=== PATIENT | male | born 1930 | race Caucasian/White ===

== ENCOUNTER 2016-05-18 19:50 | Inpatient (IN) | payer BC ==
[~2016-05-18] VITALS: Ht 182.9 cm; Wt 76.8 kg
[2016-05-18] MEDS ORDERED: MAGNESIUM HYDROXIDE 2,400 MG/30 ML ORAL.SUSP. PO PRN (20:15)
[2016-05-18] MEDS ORDERED: MAG HYDROX/AL HYDROX/SIMETH 30 ML ORAL.SUSP PO PRN (20:15)
[2016-05-18] MEDS ORDERED: METHYL SALICYLATE/MENTHOL TOPICAL OINTMENT 29GM TUBE. TP PRN (20:15)
[2016-05-18 20:45] LABS: BASO # 0.1 x10^3/uL (0.0-0.2); BASO % 1 % (0-3); EOS # 0.3 x10^3/uL (0.0-0.7); EOS % 2 % (0-3); HEMATOCRIT 40.6 % (39.0-53.0); LYMPH # 3.1 x10^3/uL (1.0-4.8); LYMPH % 29 % (24-48); MEAN CORPUSCULAR HEMOGLOBIN 32 pg (25-35); MEAN CORPUSCULAR HGB CONC 35 g/dL (31-37); MEAN CORPUSCULAR VOLUME 94 fL (79-100); MONO # 0.9 x10^3/uL (0.0-1.1); MONO % 9 % (0-9); NEUT # 6.2 x10^3uL (1.8-7.7); NEUT % 59 % (31-73); PLATELET COUNT 415 x10^3/uL (140-400); RED BLOOD COUNT 4.34 x10^6/uL (4.30-5.70); RED CELL DISTRIBUTION WIDTH 17.3 % (11.5-14.5); WHITE BLOOD COUNT 10.6 x10^3/uL (4.0-11.0)
--- NOTE | 2016-05-18 20:59 | PDOC ---
Exam Tyson Demential Exam: Tyson Note: Please also refer to the separate dictated note~for this date of service dictated separately.~Patient seen individually. Discussed the patient with Nursing staff reviewed the chart.~Reviewed interim history and current functioning. Reviewed vital signs,~Labs/ Radiology~and current medications noted below. Continue current treatment with the changes noted in the dictated addendum note Assessment: Labs: Laboratory Tests Test 05/18/16 20:25 White Blood Count 10.6x10^3/uL (4.0-11.0) Red Blood Count 4.34x10^6/uL (4.30-5.70) Hemoglobin 14.0g/dL (13.0-17.5) Hematocrit 40.6% (39.0-53.0) Mean Corpuscular Volume 94fL (79-100) Mean Corpuscular Hemoglobin 32pg (25-35) Mean Corpuscular Hemoglobin Concent 35g/dL (31-37) Red Cell Distribution Width 17.3% (11.5-14.5) H Platelet Count 415x10^3/uL (140-400) H Neutrophils (%) (Auto) 59% (31-73) Lymphocytes (%) (Auto) 29% (24-48) Monocytes (%) (Auto) 9% (0-9) Eosinophils (%) (Auto) 2% (0-3) Basophils (%) (Auto) 1% (0-3) Neutrophils # (Auto) 6.2x10^3uL (1.8-7.7) Lymphocytes # (Auto) 3.1x10^3/uL (1.0-4.8) Monocytes # (Auto) 0.9x10^3/uL (0.0-1.1) Eosinophils # (Auto) 0.3x10^3/uL (0.0-0.7) Basophils # (Auto) 0.1x10^3/uL (0.0-0.2) Current Medications: Meds: Current Medications Acetaminophen (Tylenol) 650 mg PRN Q6HRS PRN PO PAIN / TEMP; Start 05/18/16 at 20:15 Multi-Ingredient Ointment (Analgesic [place]) 1 rena PRN QID PRN TP MUSCLE PAIN; Start 05/18/16 at 20:15 Al Hydroxide/Mg Hydroxide (Mylanta Plus Xs) 15 ml PRN AFTMEALHC PRN PO DYSPEPSIA; Start 05/18/16 at 20:15 Magnesium Hydroxide (Milk Of Magnesia) 2,400 mg PRN QHS PRN PO CONSTIPATION; Start 05/18/16 at 20:15 RIKY GREY MD May 18, 2016 20:59
[2016-05-18 21:01] LABS: ALBUMIN 4.3 g/dL (3.4-5.0); ALBUMIN/GLOBULIN RATIO 1.2 (1.0-1.7); CALCIUM 9.3 mg/dL (8.5-10.1); CREATININE 0.8 mg/dL (0.7-1.3); GFR 91.4; MAGNESIUM 1.8 mg/dL (1.8-2.4); POTASSIUM 3.5 mmol/L (3.5-5.1); TOTAL PROTEIN 7.8 g/dL (6.4-8.2)
[2016-05-18] MEDS ORDERED: BENZ100C2 PO (21:25)
[2016-05-18] MEDS ORDERED: CYCL10TA2 PO (21:25)
[2016-05-18] MEDS ORDERED: CHOL10002 PO (21:25)
[2016-05-18] MEDS ORDERED: MULT-671 PO (21:25)
[2016-05-18] MEDS ORDERED: LEVO125T5 PO (21:25)
[2016-05-18] MEDS ORDERED: AMLO5TAB4 PO (21:25)
[2016-05-18] MEDS ORDERED: ZOLP5TAB5 PO (21:25)
[2016-05-18] MEDS ORDERED: MIRA25TA PO (21:25)
[2016-05-18] MEDS ORDERED: ASPI81TA50 PO (21:25)
[2016-05-18] MEDS ORDERED: FOLI1TAB16 PO (21:25)
[2016-05-18] MEDS ORDERED: LEVE500T11 PO (21:25)
[2016-05-18] MEDS ORDERED: CYAN10002 IM (21:25)
[2016-05-18] MEDS ORDERED: BENA40TA15 PO (21:25)
[2016-05-18] MEDS ORDERED: CARV6.25 PO (21:25)
[2016-05-18] MEDS ORDERED: ALBU2.5V5 NEB (21:25)
[2016-05-18] MEDS ORDERED: BENZONATATE 100 MG CAPSULE. PO PRN (22:15)
[2016-05-18] MEDS ORDERED: CYCLOBENZAPRINE 10 MG TABLET. PO PRN (22:15)
[2016-05-18] MEDS ORDERED: ALBUTEROL SULFATE 2.5 MG/3 ML NEBU. NEB PRN (22:15)
[2016-05-18] MEDS: ACETAMINOPHEN 325 MG TABLET PO PRN (23:16)
[2016-05-18] MEDS: LEVETIRACETAM 500 MG TABLET PO SCH (23:16)
[2016-05-18 23:21] VITALS: BP 141/88
[2016-05-19 05:11] VITALS: BP 129/76
[2016-05-19 06:30] LABS: BACTERIA,URINE 0 /HPF (0-FEW); BILIRUBIN,URINE NEG (NEG); CLARITY,URINE CLEAR; COLOR,URINE YELLOW; GLUCOSE,URINE NEG (NEG); NITRITE,URINE NEG (NEG); RBC,URINE RARE /HPF (0-2); SQUAMOUS EPITHELIAL CELL,UR OCC /LPF; UROBILINOGEN,URINE 2 mg/dL (0.2 mg/dL); WBC,URINE RARE /HPF (0-4)
[2016-05-19] MEDS: CHOLECALCIFEROL (VITAMIN D3) 1,000 UNIT TABLET PO SCH (07:59)
[2016-05-19] MEDS: LEVETIRACETAM 500 MG TABLET PO SCH ×2 (07:59→19:33)
[2016-05-19] MEDS: FOLIC ACID 1 MG TABLET PO SCH (08:00)
[2016-05-19] MEDS: LISINOPRIL 20 MG TABLET PO SCH (08:00)
[2016-05-19] MEDS: AMLODIPINE BESYLATE 5 MG TABLET PO SCH (08:00)
[2016-05-19] MEDS: ASPIRIN ENTERIC COATED 81 MG TABLET.DR. PO SCH (08:00)
[2016-05-19] MEDS: CARVEDILOL 6.25 MG TABLET PO SCH ×2 (08:00→17:12)
[2016-05-19] MEDS: LEVOTHYROXINE 125 MCG TABLET PO SCH (08:01)
[2016-05-19] MEDS: MIRABEGRON 25 MG TAB.ER.24H PO SCH (08:02)
--- NOTE | 2016-05-19 11:19 | EKG ---
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
[2016-05-19 13:48] LABS: THYROID STIM HORMONE (TSH) 2.571 uIU/mL (0.358-3.740)
[2016-05-19 13:49] LABS: IRON,SERUM 92 ug/dL (65-175)
[2016-05-19 15:37] VITALS: BP 120/82
[2016-05-19 17:11] LABS: T3 TOTAL 95 ng/dL (71-180); THYROXINE 7.6 ug/dL (4.5-12.0)
[2016-05-19 18:12] LABS: HEMOGLOBIN A1C 4.3 % (4.8-5.6)
[2016-05-19] MEDS: MULTIVITAMIN with MINERAL TABLET. PO SCH (19:33)
--- NOTE | 2016-05-19 21:02 | PDOC ---
Exam Tyson Demential Exam: Tyson Note: Please also refer to the separate dictated note~for this date of service dictated separately.~Patient seen individually. Discussed the patient with Nursing staff reviewed the chart.~Reviewed interim history and current functioning. Reviewed vital signs,~Labs/ Radiology~and current medications noted below. Continue current treatment with the changes noted in the dictated addendum note Assessment: Vital Signs: Vital Signs Date Time Temp Pulse Resp B/P Pulse Ox O2 Delivery O2 Flow Rate FiO2 05/19/16 17:12 68 120/82 05/19/16 15:37 98.0 97 05/19/16 05:11 20 05/18/16 23:21 Room Air I&O Intake and Output 05/19/16 07:00 Intake Total 240 ml Balance 240 ml Intake Oral 240 ml # Voids 2 Labs: Laboratory Tests Test 05/19/16 06:06 Urine Collection Type Unknown Urine Color Yellow Urine Clarity Clear Urine pH 6.5 Urine Specific [place] 1.010 Urine Protein Neg (NEG-TRACE) Urine Glucose (UA) Negmg/dL (NEG) Urine Ketones (Stick) Negmg/dL (NEG) Urine Blood Neg (NEG) Urine Nitrite Neg (NEG) Urine Bilirubin Neg (NEG) Urine Urobilinogen Dipstick 2mg/dL (0.2 mg/dL) Urine Leukocyte Esterase Neg (NEG) Urine RBC Rare/HPF (0-2) Urine WBC Rare/HPF (0-4) Urine Squamous Epithelial Cells Occ/LPF Urine Bacteria 0/HPF (0-FEW) Urine Mucus Slight/LPF Current Medications: Meds: Current Medications Acetaminophen (Tylenol) 650 mg PRN Q6HRS PRN PO PAIN / TEMP Last administered on 05/18/16t 23:16; Start 05/18/16 at 20:15 Multi-Ingredient Ointment (Analgesic [place]) 1 rena PRN QID PRN TP MUSCLE PAIN; Start 05/18/16 at 20:15 Al Hydroxide/Mg Hydroxide (Mylanta Plus Xs) 15 ml PRN AFTMEALHC PRN PO DYSPEPSIA; Start 05/18/16 at 20:15 Magnesium Hydroxide (Milk Of Magnesia) 2,400 mg PRN QHS PRN PO CONSTIPATION; Start 05/18/16 at 20:15 Albuterol Sulfate (Ventolin) 2.5 mg PRN Q2HR PRN NEB SHORTNESS OF BREATH; Start 05/18/16 at 22:15 Amlodipine Besylate (Norvasc) 5 mg DAILY PO Last administered on 05/19/16 08: 00; Start 05/19/16 at 09:00 Aspirin (Aspirin Enteric Coated) 81 mg DAILY PO Last administered on 05/19/16 08:00; Start 05/19/16 at 09:00 Benzonatate (Tessalon Perle) 100 mg PRN TID PRN PO COUGH; Start 05/18/16 at 22: 15 Carvedilol (Coreg) 6.25 mg BIDWMEALS PO Last administered on 05/19/16 17:12; Start 05/19/16 at 08:00 Vitamin D (Vitamin D3) 1,000 unit DAILY PO Last administered on 05/19/16 07:59 ; Start 05/19/16 at 09:00 Cyanocobalamin (Vitamin B-12) 1,000 mcg QMONTH IM ; Start 06/17/16 at 09:00 Cyclobenzaprine HCl (Flexeril) 10 mg PRN TID PRN PO MUSCLE SPASMS; Start at 22:15 Folic Acid (Folic Acid) 1 mg DAILY PO Last administered on 05/19/16 08:00; Start 05/19/16 at 09:00 Levothyroxine Sodium (Synthroid) 125 mcg DAILYAC PO Last administered on 08:01; Start 05/19/16 at 07:30 Zolpidem Tartrate (Ambien) 5 mg PRN QHS PRN PO INSOMNIA; Start 05/18/16 at 22: 15 Lisinopril (Prinivil) 40 mg DAILY PO Last administered on 05/19/16 08:00; Start 05/19/16 at 09:00 Levetiracetam (Keppra) 500 mg BID PO Last administered on 05/19/16 19:33; Start 05/18/16 at 22:30 Multivitamins/ Calcium (Thera-M Plus) 2 tab HS PO Last administered on 19:33; Start 05/19/16 at 21:00 Active Scripts Active Reported Zolpidem Tartrate 5 Mg Tablet 5 Mg PO PRN QHS PRN Hjjhl-Xrlhdjw-Gaxntrir Tablet (Multivit-Min/Iron Fum/Folic AC) 1 Each Tablet 2 Each PO HS Myrbetriq (Mirabegron) 25 Mg Tab.er.24h 25 Mg PO DAILY Levothyroxine Sodium 125 Mcg Tablet 125 Mcg PO DAILYAC Levetiracetam 500 Mg Tab.er.24h 500 Mg PO BID Folic Acid 1 Mg Tablet 1 Mg PO DAILY Cyclobenzaprine Hcl 10 Mg Tablet 10 Mg PO PRN TID PRN Cyanocobalamin Injection (Cyanocobalamin (Vitamin B-12)) 1,000 Mcg/1 Ml Vial 1, 000 Mcg IJ QMONTH Vitamin D (Cholecalciferol (Vitamin D3)) 1,000 Unit Tablet 1,000 Unit PO DAILY Coreg (Carvedilol) 6.25 Mg Tablet 6.25 Mg PO BIDWMEALS Benzonatate 100 Mg Capsule 100 Mg PO PRN TID PRN Lotensin (Benazepril Hcl) 40 Mg Tablet 40 Mg PO DAILY Aspir-Low (Aspirin) 81 Mg Tablet.dr 81 Mg PO DAILY Norvasc (Amlodipine Besylate) 5 Mg Tablet 5 Mg PO DAILY Albuterol Sulfate Neb Soln (Albuterol Sulfate) 2.5 Mg/3 Ml Vial.neb 2.5 Mg NEB PRN Q2HR PRN Diagnosis: Problems: (1) Major depressive disorder, recurrent episode (2) Anxiety disorder (3) Impulse control disorder RIKY GREY MD May 19, 2016 21:02
--- NOTE | 2016-05-19 21:47 | CONS ---
DATE OF CONSULTATION: 05/19/2016 REASON FOR CONSULTATION: Medical management. HISTORY OF PRESENT ILLNESS: The patient is an 85-year-old male patient who was admitted from home. He has had suicidal ideation with the plan to use a knife to kill himself after his was admitted to the hospital and his son was ____ his house. All of this in the background of lifelong major depressive disorder and was admitted to this unit for inpatient psychiatric stabilization. When I saw him this afternoon, he was complaining mostly of pain in the back of his chest. Apparently, he has fallen and said that the pain is stabbing in nature whenever he coughs or takes a deep breath that started about ____ weeks ago. PAST MEDICAL HISTORY: Significant for basal cell carcinoma, coronary artery disease status post stenting, diverticulosis, transient ischemic attack, hyperlipidemia, hypertension, hypothyroidism, myasthenia gravis, nephrolithiasis, non-ST segment elevation myocardial infarction, ocular albinism, obstructive sleep apnea, squamous cell carcinoma, ureteral stones, urinary retention, vertigo and sensorineural deafness. PAST SURGICAL HISTORY: Significant for cardiac catheterization, coronary artery bypass graft surgery with grafts harvested from the left leg. ALLERGIES: He has no known drug allergies. MEDICATIONS: He is currently on following medications: He is on albuterol sulfate 2.5 mg by nebulizer every 2 hours as needed, amlodipine besylate 5 mg once a day, aspirin 81 mg once a day, benazepril for Lotensin 40 mg once a day, benzonatate 100 mg 3 times a day as needed, carvedilol 6.25 mg twice a day with meals, cholecalciferol 1000 international units once a day, cyanocobalamin 1000 mcg intramuscular once a month for vitamin B12 deficiency, Flexeril 10 mg 3 times a day, folic acid 1 mg once a day, Keppra 500 mg p.o. b.i.d., levothyroxine sodium 125 mcg once a day, Myrbetriq 25 mg once a day, multivitamin with mineral one tablet once a day and Ambien 5 mg at bedtime. FAMILY HISTORY: Unremarkable. SOCIAL HISTORY: He is , has 2 sons and 1 daughter. He does not smoke, does not drink alcohol. 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 PHYSICAL EXAMINATION: GENERAL: When I examined him, he looked well and was clearly in no apparent respiratory distress, was pale, but no jaundice, cyanosis or thyromegaly. No jugular venous distension. No limb edema. VITAL SIGNS: His heart rate was 68, blood pressure 120/82, temperature was 98, respiratory rate was 20 and oxygen saturation was 97% on room air. HEAD, EYES, EARS, NOSE AND THROAT: Showed normocephalic, atraumatic. He has abnormally deformed right ear. The left ear is normal. NECK: Supple. HEART: Showed normal first and second heart sounds with no gallop, rub or murmur. CHEST: Clear to auscultation. No crepitation or rhonchi. ABDOMEN: Distended, soft, nontender. No guarding or rigidity. No organomegaly. Hernial orifices intact. Bowel sounds normal. NEUROLOGIC: He is awake, alert, responding appropriately. Cranial nerves intact. EXTREMITIES: He moves extremities without difficulty, ambulates without assistance or assistive devices. LABORATORY DATA: Showed a white cell count of 10,600, hemoglobin 14, hematocrit 41, MCV 94 and platelet count of 415,000 with normal manual differential. His chemistry showed a serum sodium 144, potassium 3.5, chloride 105, bicarbonate 27, anion gap of 12, BUN 8, creatinine 0.8. Estimated GFR was 91 mL per minute. His glucose 116, calcium was 9.3, magnesium was 1.8. Serum iron was 92. Total iron binding capacity was 373 and iron saturation was 25%. His total bilirubin was 2. AST, ALT were normal. Alkaline phosphatase was slightly high at 124. His total protein was 7.8, albumin 4.3. Triglycerides were 85. Total cholesterol was 195, LDL was 139, VLDL was 17, HDL cholesterol was 39 and the ratio was 5. His TSH was 2.57. His urinalysis showed the urine was clear yellow in color with pH of 6.5, specific gravity of 1.010. The urine was negative for protein, glucose, ketones, blood, nitrite and leukocyte esterase. There are rare rbc's, rare wbc's and no bacteria. IMPRESSION: In summary, this is an 85-year-old male patient who was [facility] on account of suicidal ideation with plans to use his knife to kill himself after apparently his was admitted to the hospital. He apparently has lifelong depression. From medical point of view, he seems to be generally stable. His vital signs are stable. All his lab works are within acceptable range. I will obviously review all his lab works that are still pending and make any necessary adjustment; however, overall he is medically stable. Thank you, Dr. Woody, for allowing me to participate in the care of this patient. FANI MEDRANO MD DR: JORGE/ausitn JOB#: [id number] / [id number]
[2016-05-19] MEDS: ZOLPIDEM 5 MG TABLET. PO PRN (23:22)
[2016-05-20 05:39] VITALS: BP 123/82
[2016-05-20 06:10] LABS: RPR REFLEX Non Reactive (Non Reactive)
[2016-05-20] MEDS: CHOLECALCIFEROL (VITAMIN D3) 1,000 UNIT TABLET PO SCH (08:19)
[2016-05-20] MEDS: LEVOTHYROXINE 125 MCG TABLET PO SCH (08:19)
[2016-05-20] MEDS: LEVETIRACETAM 500 MG TABLET PO SCH ×2 (08:19→20:17)
[2016-05-20] MEDS: LISINOPRIL 20 MG TABLET PO SCH (08:19)
[2016-05-20] MEDS: FOLIC ACID 1 MG TABLET PO SCH (08:20)
[2016-05-20] MEDS: ASPIRIN ENTERIC COATED 81 MG TABLET.DR. PO SCH (08:20)
[2016-05-20] MEDS: AMLODIPINE BESYLATE 5 MG TABLET PO SCH (08:20)
[2016-05-20] MEDS: CARVEDILOL 6.25 MG TABLET PO SCH ×2 (08:20→17:35)
[2016-05-20] MEDS: MIRABEGRON 25 MG TAB.ER.24H PO SCH (08:22)
--- NOTE | 2016-05-20 11:44 | RAD ---
CT scan of the head without contrast 05/20/2016 Clinical History: Dizziness.. Technique: Unenhanced, contiguous, 5 mm axial sections were obtained through the head. One or more of the following individualized dose reduction techniques were utilized for this study: 1. Automated exposure control. 2. Adjustment of the mA and/or kV according to patient size. 3. Use of iterative reconstruction technique. Findings: No previous studies are available for comparison. There is generalized parenchymal atrophy. Small scattered areas of decreased attenuation are seen within the periventricular and subcortical white matter of both cerebral hemispheres consistent with areas of small vessel ischemic disease. No acute parenchymal abnormality is seen. No extra-axial fluid collection is noted. No skull fracture is seen. Impression: No acute intracranial abnormality is seen.
[2016-05-20] MEDS: ESCITALOPRAM 5 MG TABLET PO SCH (12:37)
[2016-05-20 15:37] VITALS: BP 110/78
[2016-05-20] MEDS: MULTIVITAMIN with MINERAL TABLET. PO SCH (20:17)
--- NOTE | 2016-05-20 21:04 | PDOC ---
Exam Tyson Demential Exam: Tyson Note: Please also refer to the separate dictated note~for this date of service dictated separately.~Patient seen individually. Discussed the patient with Nursing staff reviewed the chart.~Reviewed interim history and current functioning. Reviewed vital signs,~Labs/ Radiology~and current medications noted below. Continue current treatment with the changes noted in the dictated addendum note Assessment: Vital Signs: Vital Signs Date Time Temp Pulse Resp B/P Pulse Ox O2 Delivery O2 Flow Rate FiO2 05/20/16 17:35 74 110/78 05/20/16 15:37 98.1 20 95 05/18/16 23:21 Room Air I&O Intake and Output 05/20/16 07:00 Intake Total 840 ml Balance 840 ml Intake Oral 840 ml # Bowel Movements 1 Current Medications: Meds: Current Medications Acetaminophen (Tylenol) 650 mg PRN Q6HRS PRN PO PAIN / TEMP Last administered on 05/18/16 23:16; Start 05/18/16 at 20:15 Multi-Ingredient Ointment (Analgesic [place]) 1 rena PRN QID PRN TP MUSCLE PAIN; Start 05/18/16 at 20:15 Al Hydroxide/Mg Hydroxide (Mylanta Plus Xs) 15 ml PRN AFTMEALHC PRN PO DYSPEPSIA; Start 05/18/16 at 20:15 Magnesium Hydroxide (Milk Of Magnesia) 2,400 mg PRN QHS PRN PO CONSTIPATION; Start 05/18/16 at 20:15 Albuterol Sulfate (Ventolin) 2.5 mg PRN Q2HR PRN NEB SHORTNESS OF BREATH; Start 05/18/16 at 22:15 Amlodipine Besylate (Norvasc) 5 mg DAILY PO Last administered on 05/20/16 08: 20; Start 05/19/16 at 09:00 Aspirin (Aspirin Enteric Coated) 81 mg DAILY PO Last administered on 05/20/16 08:20; Start 05/19/16 at 09:00 Benzonatate (Tessalon Perle) 100 mg PRN TID PRN PO COUGH; Start 05/18/16 at 22: 15 Carvedilol (Coreg) 6.25 mg BIDWMEALS PO Last administered on 05/20/16 17:35; Start 05/19/16 at 08:00 Vitamin D (Vitamin D3) 1,000 unit DAILY PO Last administered on 05/20/16 08:19 ; Start 05/19/16 at 09:00 Cyanocobalamin (Vitamin B-12) 1,000 mcg QMONTH IM ; Start 06/17/16 at 09:00 Cyclobenzaprine HCl (Flexeril) 10 mg PRN TID PRN PO MUSCLE SPASMS; Start at 22:15 Folic Acid (Folic Acid) 1 mg DAILY PO Last administered on 05/20/16 08:20; Start 05/19/16 at 09:00 Levothyroxine Sodium (Synthroid) 125 mcg DAILYAC PO Last administered on 08:19; Start 05/19/16 at 07:30 Zolpidem Tartrate (Ambien) 5 mg PRN QHS PRN PO INSOMNIA Last administered on 23:22; Start 05/18/16 at 22:15 Lisinopril (Prinivil) 40 mg DAILY PO Last administered on 05/20/16 08:19; Start 05/19/16 at 09:00 Levetiracetam (Keppra) 500 mg BID PO Last administered on 05/20/16 20:17; Start 05/18/16 at 22:30 Multivitamins/ Calcium (Thera-M Plus) 2 tab HS PO Last administered on 20:17; Start 05/19/16 at 21:00 Escitalopram Oxalate (Lexapro) 5 mg DAILY PO Last administered on 05/20/16 12: 37; Start 05/20/16 at 10:00 Active Scripts Active Reported Zolpidem Tartrate 5 Mg Tablet 5 Mg PO PRN QHS PRN Wpshq-Ncebjti-Kfaradec Tablet (Multivit-Min/Iron Fum/Folic AC) 1 Each Tablet 2 Each PO HS Myrbetriq (Mirabegron) 25 Mg Tab.er.24h 25 Mg PO DAILY Levothyroxine Sodium 125 Mcg Tablet 125 Mcg PO DAILYAC Levetiracetam 500 Mg Tab.er.24h 500 Mg PO BID Folic Acid 1 Mg Tablet 1 Mg PO DAILY Cyclobenzaprine Hcl 10 Mg Tablet 10 Mg PO PRN TID PRN Cyanocobalamin Injection (Cyanocobalamin (Vitamin B-12)) 1,000 Mcg/1 Ml Vial 1, 000 Mcg IJ QMONTH Vitamin D (Cholecalciferol (Vitamin D3)) 1,000 Unit Tablet 1,000 Unit PO DAILY Coreg (Carvedilol) 6.25 Mg Tablet 6.25 Mg PO BIDWMEALS Benzonatate 100 Mg Capsule 100 Mg PO PRN TID PRN Lotensin (Benazepril Hcl) 40 Mg Tablet 40 Mg PO DAILY Aspir-Low (Aspirin) 81 Mg Tablet.dr 81 Mg PO DAILY Norvasc (Amlodipine Besylate) 5 Mg Tablet 5 Mg PO DAILY Albuterol Sulfate Neb Soln (Albuterol Sulfate) 2.5 Mg/3 Ml Vial.neb 2.5 Mg NEB PRN Q2HR PRN Diagnosis: Problems: (1) Major depressive disorder, recurrent episode (2) Anxiety disorder (3) Impulse control disorder RIKY GREY MD May 20, 2016 21:04
--- NOTE | 2016-05-20 22:44 | HP ---
ADMIT DATE: 05/19/2016 PSYCHIATRIC ADMISSION HISTORY/EVALUATION This is late entry for date of service 05/19/2016. IDENTIFYING DATA: The patient is 85-year-old male referred to us from [facility] Emergency Room in [place], [place] where he presented from home on account of worsening symptoms of depression and suicidal ideation. The patient generally lives at home with his and she was recently hospitalized for her own medical problems. The patient has a past history of depression, became extremely despondent, suicidal, resulting in this referral. Reviewed current and past records from [facility], discussed with nursing staff, met with the patient individually. CHIEF COMPLAINT: "Yes, I have been depressed. I have had thoughts of using a knife to kill myself. I would not do that." HISTORY OF PRESENT ILLNESS: The patient has a long history of depression, some of it circumstantial, but he has been hospitalized in the past about 2 years ago at [facility] for depression. More recently, the patient admits to getting increasingly depressed with some sleep and appetite changes, feeling hopeless, helpless, worthless, but all of this came to head after his was just hospitalized at [facility] for her own medical condition. He denies clear psychotic symptoms or homicidal ideation. No clear history of bipolar disorder. From a memory standpoint, he has been reasonable though he has had some short term memory deficits. PAST PSYCHIATRIC HISTORY: As above. PAST MEDICAL HISTORY: Positive for basal cell carcinoma, coronary artery disease status post stenting, diverticulosis, TIA, hyperlipidemia, hypertension, hypothyroidism, myasthenia gravis, nephrolithiasis, non-ST elevation [place], ocular albinism, obstructive sleep apnea, squamous cell carcinoma, ureteral stones, urinary retention, vertical sensorineural deafness. PAST SURGICAL HISTORY: Cardiac catheterization, coronary artery bypass graft with grafts harvested from left leg. DRUG ALLERGIES: Negative. CURRENT PSYCHOTROPICS: None at the time of this admission, but since then he has been started on Lexapro 5 mg a day. FAMILY HISTORY: Noncontributory. SOCIAL HISTORY: The patient lives at home with his . He retired from [employer]. No alcohol, drug abuse, physical, sexual or elder abuse history is noted. He is not known to be a perpetrator. MENTAL STATUS EXAMINATION: The patient was seen individually in his room. He is oriented to himself and situation. Speech is coherent. His mood is depressed. Affect is mood congruent. He admits to feeling hopeless, helpless, worthless and readily admitted to the suicidal ideation noted above, but on close and persistent questioning, denied active suicidal ideation to hurt himself. No clear psychotic symptoms. No homicidal ideation. Attention span short, language function intact. VITAL SIGNS: Temperature 98, pulse 68, BP 120/82. REVIEW OF SYSTEMS: Hard of hearing. No CV, , pulmonary, eye system symptoms on review. IMPRESSION: Major depressive disorder, recurrent, moderate to severe with suicidal ideation; anxiety disorder, unspecified; impulse control disorder, unspecified; cognitive disorder, unspecified. Rest diagnoses as above. PLAN: Admit to geropsychiatry unit at [facility]. Request Dr. Rosenberg/Dr. Schneider to follow the patient from medical standpoint. I will see him daily from a psychiatric standpoint. We will start Lexapro 5 mg a day, do a CT head. At the time of this dictation, CT head shows no acute changes, but chronic microvascular ischemic changes. We will make further adjustments as clinically indicated. RIKY GREY MD DR: YUDITH/austin JOB#: [id number] / [id number]
[2016-05-21] MEDS: ZOLPIDEM 5 MG TABLET. PO PRN (00:29)
[2016-05-21 03:19] LABS: VITAMIN D25(OH)TOTAL 37.3 ng/mL (30.0-100.0)
[2016-05-21 06:29] VITALS: BP 125/69
[2016-05-21] MEDS: FOLIC ACID 1 MG TABLET PO SCH (08:12)
[2016-05-21] MEDS: CHOLECALCIFEROL (VITAMIN D3) 1,000 UNIT TABLET PO SCH (08:13)
[2016-05-21] MEDS: ESCITALOPRAM 5 MG TABLET PO SCH (08:13)
[2016-05-21] MEDS: LISINOPRIL 20 MG TABLET PO SCH (08:13)
[2016-05-21] MEDS: CARVEDILOL 6.25 MG TABLET PO SCH ×2 (08:13→16:32)
[2016-05-21] MEDS: AMLODIPINE BESYLATE 5 MG TABLET PO SCH (08:14)
[2016-05-21] MEDS: LEVETIRACETAM 500 MG TABLET PO SCH ×2 (08:14→20:39)
[2016-05-21] MEDS: LEVOTHYROXINE 125 MCG TABLET PO SCH (08:14)
[2016-05-21] MEDS: ASPIRIN ENTERIC COATED 81 MG TABLET.DR. PO SCH (08:14)
[2016-05-21] MEDS: MIRABEGRON 25 MG TAB.ER.24H PO SCH (08:19)
[2016-05-21] MEDS: ACETAMINOPHEN 325 MG TABLET PO PRN (12:51)
[2016-05-21 15:53] VITALS: BP 134/81
--- NOTE | 2016-05-21 18:11 | RAD ---
PROCEDURE AP chest. HISTORY Congestion and coughing. COMPARISON None. FINDINGS Median sternotomy wires and changes of prior CABG. Atherosclerotic and ectatic aortic arch. Cardiac size normal. Moderate elevation of right hemidiaphragm. Minimal scarring or atelectasis right lung base. Lungs otherwise clear. No pleural abnormality is seen. Diffuse demineralization. Cholecystectomy clips. IMPRESSION No acute cardiopulmonary process. Electronically signed by: Kole Mckeon MD (May 21, 2016 18:10:04)
--- NOTE | 2016-05-21 20:05 | PDOC ---
Exam Tyson Demential Exam: Tyson Note: Please also refer to the separate dictated note~for this date of service dictated separately.~Patient seen individually. Discussed the patient with Nursing staff reviewed the chart.~Reviewed interim history and current functioning. Reviewed vital signs,~Labs/ Radiology~and current medications noted below. Continue current treatment with the changes noted in the dictated addendum note Assessment: Vital Signs: Vital Signs Date Time Temp Pulse Resp B/P Pulse Ox O2 Delivery O2 Flow Rate FiO2 05/21/16 16:32 67 134/81 05/21/16 15:53 99.1 16 93 05/18/16 23:21 Room Air I&O Intake and Output 05/21/16 07:00 Intake Total 840 ml Balance 840 ml Intake Oral 840 ml Current Medications: Meds: Current Medications Acetaminophen (Tylenol) 650 mg PRN Q6HRS PRN PO PAIN / TEMP Last administered on 05/21/16 12:51; Start 05/18/16 at 20:15 Multi-Ingredient Ointment (Analgesic [place]) 1 rena PRN QID PRN TP MUSCLE PAIN; Start 05/18/16 at 20:15 Al Hydroxide/Mg Hydroxide (Mylanta Plus Xs) 15 ml PRN AFTMEALHC PRN PO DYSPEPSIA; Start 05/18/16 at 20:15 Magnesium Hydroxide (Milk Of Magnesia) 2,400 mg PRN QHS PRN PO CONSTIPATION; Start 05/18/16 at 20:15 Albuterol Sulfate (Ventolin) 2.5 mg PRN Q2HR PRN NEB SHORTNESS OF BREATH; Start 05/18/16 at 22:15 Amlodipine Besylate (Norvasc) 5 mg DAILY PO Last administered on 05/21/16 08: 14; Start 05/19/16 at 09:00 Aspirin (Aspirin Enteric Coated) 81 mg DAILY PO Last administered on 05/21/16 08:14; Start 05/19/16 at 09:00 Benzonatate (Tessalon Perle) 100 mg PRN TID PRN PO COUGH Last administered on 12:51; Start 05/18/16 at 22:15 Carvedilol (Coreg) 6.25 mg BIDWMEALS PO Last administered on 05/21/16 16:32; Start 05/19/16 at 08:00 Vitamin D (Vitamin D3) 1,000 unit DAILY PO Last administered on 05/21/16 08:13 ; Start 05/19/16 at 09:00 Cyanocobalamin (Vitamin B-12) 1,000 mcg QMONTH IM ; Start 06/17/16 at 09:00 Cyclobenzaprine HCl (Flexeril) 10 mg PRN TID PRN PO MUSCLE SPASMS; Start at 22:15 Folic Acid (Folic Acid) 1 mg DAILY PO Last administered on 05/21/16 08:12; Start 05/19/16 at 09:00 Levothyroxine Sodium (Synthroid) 125 mcg DAILYAC PO Last administered on 08:14; Start 05/19/16 at 07:30; Stop 05/21/16 at 08:21; Status DC Zolpidem Tartrate (Ambien) 5 mg PRN QHS PRN PO INSOMNIA Last administered on 00:29; Start 05/18/16 at 22:15 Lisinopril (Prinivil) 40 mg DAILY PO Last administered on 05/21/16 08:13; Start 05/19/16 at 09:00 Levetiracetam (Keppra) 500 mg BID PO Last administered on 05/21/16 08:14; Start 05/18/16 at 22:30 Multivitamins/ Calcium (Thera-M Plus) 2 tab HS PO Last administered on 20:17; Start 05/19/16 at 21:00 Escitalopram Oxalate (Lexapro) 5 mg DAILY PO Last administered on 05/21/16 08: 13; Start 05/20/16 at 10:00 Levothyroxine Sodium (Synthroid) 125 mcg 06 PO ; Start 05/22/16 at 06:00 Active Scripts Active Reported Zolpidem Tartrate 5 Mg Tablet 5 Mg PO PRN QHS PRN [id number]-Nbuhcwyx Tablet (Multivit-Min/Iron Fum/Folic AC) 1 Each Tablet 2 Each PO HS Myrbetriq (Mirabegron) 25 Mg Tab.er.24h 25 Mg PO DAILY Levothyroxine Sodium 125 Mcg Tablet 125 Mcg PO DAILYAC Levetiracetam 500 Mg Tab.er.24h 500 Mg PO BID Folic Acid 1 Mg Tablet 1 Mg PO DAILY Cyclobenzaprine Hcl 10 Mg Tablet 10 Mg PO PRN TID PRN Cyanocobalamin Injection (Cyanocobalamin (Vitamin B-12)) 1,000 Mcg/1 Ml Vial 1, 000 Mcg IJ QMONTH Vitamin D (Cholecalciferol (Vitamin D3)) 1,000 Unit Tablet 1,000 Unit PO DAILY Coreg (Carvedilol) 6.25 Mg Tablet 6.25 Mg PO BIDWMEALS Benzonatate 100 Mg Capsule 100 Mg PO PRN TID PRN Lotensin (Benazepril Hcl) 40 Mg Tablet 40 Mg PO DAILY Aspir-Low (Aspirin) 81 Mg Tablet.dr 81 Mg PO DAILY Norvasc (Amlodipine Besylate) 5 Mg Tablet 5 Mg PO DAILY Albuterol Sulfate Neb Soln (Albuterol Sulfate) 2.5 Mg/3 Ml Vial.neb 2.5 Mg NEB PRN Q2HR PRN Diagnosis: Problems: (1) Major depressive disorder, recurrent episode (2) Anxiety disorder (3) Impulse control disorder RIKY GREY MD May 21, 2016 20:05
[2016-05-21] MEDS: MULTIVITAMIN with MINERAL TABLET. PO SCH (20:39)
[2016-05-21 21:26] LABS: INFLUENZA A PATIENT NEGATIVE (NEGATIVE); INFLUENZA B PATIENT NEGATIVE (NEGATIVE)
--- NOTE | 2016-05-22 00:42 | PN ---
DATE: 05/20/2016 PSYCHIATRIC PROGRESS NOTE This is late entry of 05/20/2016, covers elements not covered in my initial note. SUBJECTIVE: The patient was staffed at treatment team meeting with the entire team, reviewed his progress, history, medications, psychosocial stressors including hospitalization of his , worsening his own, symptoms of depression and suicidality. CT head shows ischemic vascular changes. No acute changes. REVIEW OF SYSTEMS: Hard of hearing. No CV, , pulmonary, eye system symptoms on review. Ambulation impaired with a walker at times. MENTAL STATUS EXAMINATION: Reasonably oriented. Speech coherent, abstraction fair, computation impaired, language function intact. Mood and affect still somewhat dysphoric, anxious. No suicidal ideation at the time I assessed him on 05/20/2016. LABORATORY DATA: Reviewed. IMPRESSION: Major depressive disorder, recurrent; anxiety disorder, unspecified. PLAN: Continue Lexapro 5 mg a day, adjust further as clinically indicated, may need to increase ____ Hong p.r.n. RIKY GREY MD DR: YUDITH/austin JOB#: [id number] / [id number]
[2016-05-22] MEDS: LEVOTHYROXINE 125 MCG TABLET PO SCH (06:09)
[2016-05-22 06:34] VITALS: BP 135/79
[2016-05-22 08:10] LABS: HEMATOCRIT 34.4 % (39.0-53.0); HEMOGLOBIN 12.1 g/dL (13.0-17.5); RED BLOOD COUNT 3.72 x10^6/uL (4.30-5.70); RED CELL DISTRIBUTION WIDTH 17.7 % (11.5-14.5); WHITE BLOOD COUNT 6.5 x10^3/uL (4.0-11.0)
[2016-05-22 08:17] LABS: ALBUMIN 3.3 g/dL (3.4-5.0); ALBUMIN/GLOBULIN RATIO 1.2 (1.0-1.7); CALCIUM 8.5 mg/dL (8.5-10.1); CREATININE 0.7 mg/dL (0.7-1.3); GFR 106.7; POTASSIUM 3.6 mmol/L (3.5-5.1); TOTAL BILIRUBIN 1.2 mg/dL (0.2-1.0); TOTAL PROTEIN 6.1 g/dL (6.4-8.2)
[2016-05-22] MEDS: ASPIRIN ENTERIC COATED 81 MG TABLET.DR. PO SCH (08:28)
[2016-05-22] MEDS: ESCITALOPRAM 5 MG TABLET PO SCH (08:28)
[2016-05-22] MEDS: CARVEDILOL 6.25 MG TABLET PO SCH ×2 (08:29→17:19)
[2016-05-22] MEDS: CHOLECALCIFEROL (VITAMIN D3) 1,000 UNIT TABLET PO SCH (08:29)
[2016-05-22] MEDS: FOLIC ACID 1 MG TABLET PO SCH (08:29)
[2016-05-22] MEDS: LISINOPRIL 20 MG TABLET PO SCH (08:30)
[2016-05-22] MEDS: AMLODIPINE BESYLATE 5 MG TABLET PO SCH (08:30)
[2016-05-22] MEDS: LEVETIRACETAM 500 MG TABLET PO SCH ×2 (08:30→20:14)
[2016-05-22] MEDS: MIRABEGRON 25 MG TAB.ER.24H PO SCH (08:31)
[2016-05-22] MEDS: ACETAMINOPHEN 325 MG TABLET PO PRN (15:35)
[2016-05-22 15:51] VITALS: BP 124/80
[2016-05-22] MEDS: CETIRIZINE HCL 10 MG TABLET PO SCH (20:14)
[2016-05-22] MEDS: MULTIVITAMIN with MINERAL TABLET. PO SCH (20:14)
--- NOTE | 2016-05-22 22:02 | PDOC ---
Exam Tyson Demential Exam: Tyson Note: Please also refer to the separate dictated note~for this date of service dictated separately.~Patient seen individually. Discussed the patient with Nursing staff reviewed the chart.~Reviewed interim history and current functioning. Reviewed vital signs,~Labs/ Radiology~and current medications noted below. Continue current treatment with the changes noted in the dictated addendum note Assessment: Vital Signs: Vital Signs Date Time Temp Pulse Resp B/P Pulse Ox O2 Delivery O2 Flow Rate FiO2 05/22/16 17:19 65 124/80 05/22/16 15:51 97.7 18 96 Room Air I&O Intake and Output 05/22/16 07:00 Intake Total 780 ml Balance 780 ml Intake Oral 780 ml Labs: Laboratory Tests Test 05/22/16 07:52 White Blood Count 6.5x10^3/uL (4.0-11.0) Red Blood Count 3.72x10^6/uL (4.30-5.70) L Hemoglobin 12.1g/dL (13.0-17.5) L Hematocrit 34.4% (39.0-53.0) L Mean Corpuscular Volume 92fL (79-100) Mean Corpuscular Hemoglobin 33pg (25-35) Mean Corpuscular Hemoglobin Concent 35g/dL (31-37) Red Cell Distribution Width 17.7% (11.5-14.5) H Platelet Count 265x10^3/uL (140-400) Sodium Level 143mmol/L (136-145) Potassium Level 3.6mmol/L (3.5-5.1) Chloride Level 107mmol/L (98-107) Carbon Dioxide Level 27mmol/L (21-32) Anion Gap 9 (6-14) Blood Urea Nitrogen 7mg/dL (8-26) L Creatinine 0.7mg/dL (0.7-1.3) Estimated GFR (Cockcroft-Gault) 106.7 BUN/Creatinine Ratio 10 (6-20) Glucose Level 106mg/dL (70-99) H Calcium Level 8.5mg/dL (8.5-10.1) Total Bilirubin 1.2mg/dL (0.2-1.0) H Aspartate Amino Transferase (AST) 20U/L (15-37) Alanine Aminotransferase (ALT) 23U/L (16-63) Alkaline Phosphatase 93U/L (46-116) Total Protein 6.1g/dL (6.4-8.2) L Albumin 3.3g/dL (3.4-5.0) L Albumin/Globulin Ratio 1.2 (1.0-1.7) Current Medications: Meds: Current Medications Acetaminophen (Tylenol) 650 mg PRN Q6HRS PRN PO PAIN / TEMP Last administered on 05/22/16 15:35; Start 05/18/16 at 20:15 Multi-Ingredient Ointment (Analgesic [place]) 1 rena PRN QID PRN TP MUSCLE PAIN; Start 05/18/16 at 20:15 Al Hydroxide/Mg Hydroxide (Mylanta Plus Xs) 15 ml PRN AFTMEALHC PRN PO DYSPEPSIA; Start 05/18/16 at 20:15 Magnesium Hydroxide (Milk Of Magnesia) 2,400 mg PRN QHS PRN PO CONSTIPATION; Start 05/18/16 at 20:15 Albuterol Sulfate (Ventolin) 2.5 mg PRN Q2HR PRN NEB SHORTNESS OF BREATH; Start 05/18/16 at 22:15 Amlodipine Besylate (Norvasc) 5 mg DAILY PO Last administered on 05/22/16 08: 30; Start 05/19/16 at 09:00 Aspirin (Aspirin Enteric Coated) 81 mg DAILY PO Last administered on 05/22/16 08:28; Start 05/19/16 at 09:00 Benzonatate (Tessalon Perle) 100 mg PRN TID PRN PO COUGH Last administered on 12:51; Start 05/18/16 at 22:15 Carvedilol (Coreg) 6.25 mg BIDWMEALS PO Last administered on 05/22/16 17:19; Start 05/19/16 at 08:00 Vitamin D (Vitamin D3) 1,000 unit DAILY PO Last administered on 05/22/16 08:29 ; Start 05/19/16 at 09:00 Cyanocobalamin (Vitamin B-12) 1,000 mcg QMONTH IM ; Start 06/17/16 at 09:00 Cyclobenzaprine HCl (Flexeril) 10 mg PRN TID PRN PO MUSCLE SPASMS; Start at 22:15 Folic Acid (Folic Acid) 1 mg DAILY PO Last administered on 05/22/16 08:29; Start 05/19/16 at 09:00 Levothyroxine Sodium (Synthroid) 125 mcg DAILYAC PO Last administered on 08:14; Start 05/19/16 at 07:30; Stop 05/21/16 at 08:21; Status DC Zolpidem Tartrate (Ambien) 5 mg PRN QHS PRN PO INSOMNIA Last administered on 00:29; Start 05/18/16 at 22:15 Lisinopril (Prinivil) 40 mg DAILY PO Last administered on 05/22/16 08:30; Start 05/19/16 at 09:00 Levetiracetam (Keppra) 500 mg BID PO Last administered on 05/22/16 20:14; Start 05/18/16 at 22:30 Multivitamins/ Calcium (Thera-M Plus) 2 tab HS PO Last administered on 20:14; Start 05/19/16 at 21:00 Escitalopram Oxalate (Lexapro) 5 mg DAILY PO Last administered on 05/22/16 08: 28; Start 05/20/16 at 10:00 Levothyroxine Sodium (Synthroid) 125 mcg 06 PO Last administered on 05/22/16 06:09; Start 05/22/16 at 06:00 Cetirizine HCl (Zyrtec) 10 mg DAILY PO Last administered on 05/22/16 20:14; Start 05/22/16 at 20:00 Active Scripts Active Reported Zolpidem Tartrate 5 Mg Tablet 5 Mg PO PRN QHS PRN [id number]-Wtwrwhjv Tablet (Multivit-Min/Iron Fum/Folic AC) 1 Each Tablet 2 Each PO HS Myrbetriq (Mirabegron) 25 Mg Tab.er.24h 25 Mg PO DAILY Levothyroxine Sodium 125 Mcg Tablet 125 Mcg PO DAILYAC Levetiracetam 500 Mg Tab.er.24h 500 Mg PO BID Folic Acid 1 Mg Tablet 1 Mg PO DAILY Cyclobenzaprine Hcl 10 Mg Tablet 10 Mg PO PRN TID PRN Cyanocobalamin Injection (Cyanocobalamin (Vitamin B-12)) 1,000 Mcg/1 Ml Vial 1, 000 Mcg IJ QMONTH Vitamin D (Cholecalciferol (Vitamin D3)) 1,000 Unit Tablet 1,000 Unit PO DAILY Coreg (Carvedilol) 6.25 Mg Tablet 6.25 Mg PO BIDWMEALS Benzonatate 100 Mg Capsule 100 Mg PO PRN TID PRN Lotensin (Benazepril Hcl) 40 Mg Tablet 40 Mg PO DAILY Aspir-Low (Aspirin) 81 Mg Tablet.dr 81 Mg PO DAILY Norvasc (Amlodipine Besylate) 5 Mg Tablet 5 Mg PO DAILY Albuterol Sulfate Neb Soln (Albuterol Sulfate) 2.5 Mg/3 Ml Vial.neb 2.5 Mg NEB PRN Q2HR PRN Diagnosis: Problems: (1) Major depressive disorder, recurrent episode (2) Anxiety disorder (3) Impulse control disorder RIKY GREY MD May 22, 2016 22:02
[2016-05-23] MEDS: LEVOTHYROXINE 125 MCG TABLET PO SCH (06:23)
[2016-05-23] MEDS: CETIRIZINE HCL 10 MG TABLET PO SCH (08:49)
[2016-05-23] MEDS: CHOLECALCIFEROL (VITAMIN D3) 1,000 UNIT TABLET PO SCH (08:49)
[2016-05-23] MEDS: LEVETIRACETAM 500 MG TABLET PO SCH ×2 (08:49→19:18)
[2016-05-23] MEDS: LISINOPRIL 20 MG TABLET PO SCH (08:49)
[2016-05-23] MEDS: FOLIC ACID 1 MG TABLET PO SCH (08:49)
[2016-05-23] MEDS: ESCITALOPRAM 5 MG TABLET PO SCH (08:50)
[2016-05-23] MEDS: ASPIRIN ENTERIC COATED 81 MG TABLET.DR. PO SCH (08:50)
[2016-05-23] MEDS: MIRABEGRON 25 MG TAB.ER.24H PO SCH (08:50)
[2016-05-23] MEDS: AMLODIPINE BESYLATE 5 MG TABLET PO SCH (08:50)
[2016-05-23] MEDS: CARVEDILOL 6.25 MG TABLET PO SCH ×2 (08:50→17:07)
[2016-05-23 09:44] VITALS: BP 118/73
[2016-05-23 16:11] VITALS: BP 126/79
[2016-05-23] MEDS: MULTIVITAMIN with MINERAL TABLET. PO SCH (19:18)
--- NOTE | 2016-05-23 21:04 | PN ---
DATE: 05/21/2016 PSYCHIATRIC PROGRESS NOTE This is late entry of 05/21/2016, covers elements not covered in my initial note. SUBJECTIVE: Per nursing report, the patient had a temperature of 99.1, some sniffles, swab has been done for flu and I will defer to Dr. Schneider to work up the patient up for this. Other than this, No CV, , GI, eye system symptoms on review. He is slightly hard of hearing. I talked about his being potentially discharged from the hospital, pleased with this. MENTAL STATUS EXAMINATION: Reasonably oriented. Speech coherent, abstraction fair, computation impaired, language function intact, attention span short. Mood and affect improved. Denies suicidal ideation. IMPRESSION: Unchanged. PLAN: Continue current psychotropic, Lexapro 5 mg a day. Adjust as clinically indicated. MAN Nemo GREY MD DR: YUDITH/austin JOB#: [id number] / [id number]
--- NOTE | 2016-05-23 21:09 | PN ---
DATE: 05/22/2016 PSYCHIATRIC PROGRESS NOTE This is late entry of 05/22/2016, covers elements not covered in my initial note. SUBJECTIVE: Overall, the patient is doing well on the unit. Workup for flu was negative. He said his is back home. He is pleased with this. Family visited him on 05/22/2016. REVIEW OF SYSTEMS: Hard of hearing, still having some sniffles. No CV, , eye system symptoms on review. MENTAL STATUS EXAMINATION: Reasonably oriented. Speech coherent, processed the above at length with him. He denies active suicidal ideation, abstraction fair, computation somewhat impaired. Mood and affect is improved. LABORATORY DATA: Reviewed. 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 PLAN: Continue Lexapro 5 mg a day, consider transition to a lower level of care this coming week. MAN Nemo GREY MD DR: YUDITH/austin JOB#: [id number] / [id number]
--- NOTE | 2016-05-23 21:24 | PDOC ---
Exam Tyson Demential Exam: Tyson Note: Please also refer to the separate dictated note~for this date of service dictated separately.~Patient seen individually. Discussed the patient with Nursing staff reviewed the chart.~Reviewed interim history and current functioning. Reviewed vital signs,~Labs/ Radiology~and current medications noted below. Continue current treatment with the changes noted in the dictated addendum note Assessment: Vital Signs: Vital Signs Date Time Temp Pulse Resp B/P Pulse Ox O2 Delivery O2 Flow Rate FiO2 05/23/16 17:07 78 126/79 05/23/16 16:11 97.6 18 94 05/23/16 09:44 Room Air I&O Intake and Output 05/23/16 07:00 Intake Total 1200 ml Balance 1200 ml Intake Oral 1200 ml Current Medications: Meds: Current Medications Acetaminophen (Tylenol) 650 mg PRN Q6HRS PRN PO PAIN / TEMP Last administered on 05/22/16 15:35; Start 05/18/16 at 20:15 Multi-Ingredient Ointment (Analgesic [place]) 1 rena PRN QID PRN TP MUSCLE PAIN; Start 05/18/16 at 20:15 Al Hydroxide/Mg Hydroxide (Mylanta Plus Xs) 15 ml PRN AFTMEALHC PRN PO DYSPEPSIA; Start 05/18/16 at 20:15 Magnesium Hydroxide (Milk Of Magnesia) 2,400 mg PRN QHS PRN PO CONSTIPATION; Start 05/18/16 at 20:15 Albuterol Sulfate (Ventolin) 2.5 mg PRN Q2HR PRN NEB SHORTNESS OF BREATH; Start 05/18/16 at 22:15 Amlodipine Besylate (Norvasc) 5 mg DAILY PO Last administered on 05/23/16 08: 50; Start 05/19/16 at 09:00 Aspirin (Aspirin Enteric Coated) 81 mg DAILY PO Last administered on 05/23/16 08:50; Start 05/19/16 at 09:00 Benzonatate (Tessalon Perle) 100 mg PRN TID PRN PO COUGH Last administered on 12:51; Start 05/18/16 at 22:15 Carvedilol (Coreg) 6.25 mg BIDWMEALS PO Last administered on 05/23/16 17:07; Start 05/19/16 at 08:00 Vitamin D (Vitamin D3) 1,000 unit DAILY PO Last administered on 05/23/16 08:49 ; Start 05/19/16 at 09:00 Cyanocobalamin (Vitamin B-12) 1,000 mcg QMONTH IM ; Start 06/17/16 at 09:00 Cyclobenzaprine HCl (Flexeril) 10 mg PRN TID PRN PO MUSCLE SPASMS; Start at 22:15 Folic Acid (Folic Acid) 1 mg DAILY PO Last administered on 05/23/16 08:49; Start 05/19/16 at 09:00 Levothyroxine Sodium (Synthroid) 125 mcg DAILYAC PO Last administered on 08:14; Start 05/19/16 at 07:30; Stop 05/21/16 at 08:21; Status DC Zolpidem Tartrate (Ambien) 5 mg PRN QHS PRN PO INSOMNIA Last administered on 00:29; Start 05/18/16 at 22:15 Lisinopril (Prinivil) 40 mg DAILY PO Last administered on 05/23/16 08:49; Start 05/19/16 at 09:00 Levetiracetam (Keppra) 500 mg BID PO Last administered on 05/23/16 19:18; Start 05/18/16 at 22:30 Multivitamins/ Calcium (Thera-M Plus) 2 tab HS PO Last administered on 19:18; Start 05/19/16 at 21:00 Escitalopram Oxalate (Lexapro) 5 mg DAILY PO Last administered on 05/23/16 08: 50; Start 05/20/16 at 10:00 Levothyroxine Sodium (Synthroid) 125 mcg 06 PO Last administered on 05/23/16 06:23; Start 05/22/16 at 06:00 Cetirizine HCl (Zyrtec) 10 mg DAILY PO Last administered on 05/23/16 08:49; Start 05/22/16 at 20:00 Active Scripts Active Reported Zolpidem Tartrate 5 Mg Tablet 5 Mg PO PRN QHS PRN Avvlq-Ujpmefv-Fnqhsegh Tablet (Multivit-Min/Iron Fum/Folic AC) 1 Each Tablet 2 Each PO HS Myrbetriq (Mirabegron) 25 Mg Tab.er.24h 25 Mg PO DAILY Levothyroxine Sodium 125 Mcg Tablet 125 Mcg PO DAILYAC Levetiracetam 500 Mg Tab.er.24h 500 Mg PO BID Folic Acid 1 Mg Tablet 1 Mg PO DAILY Cyclobenzaprine Hcl 10 Mg Tablet 10 Mg PO PRN TID PRN Cyanocobalamin Injection (Cyanocobalamin (Vitamin B-12)) 1,000 Mcg/1 Ml Vial 1, 000 Mcg IJ QMONTH Vitamin D (Cholecalciferol (Vitamin D3)) 1,000 Unit Tablet 1,000 Unit PO DAILY Coreg (Carvedilol) 6.25 Mg Tablet 6.25 Mg PO BIDWMEALS Benzonatate 100 Mg Capsule 100 Mg PO PRN TID PRN Lotensin (Benazepril Hcl) 40 Mg Tablet 40 Mg PO DAILY Aspir-Low (Aspirin) 81 Mg Tablet.dr 81 Mg PO DAILY Norvasc (Amlodipine Besylate) 5 Mg Tablet 5 Mg PO DAILY Albuterol Sulfate Neb Soln (Albuterol Sulfate) 2.5 Mg/3 Ml Vial.neb 2.5 Mg NEB PRN Q2HR PRN Diagnosis: Problems: (1) Major depressive disorder, recurrent episode (2) Anxiety disorder (3) Impulse control disorder RIKY GREY MD May 23, 2016 21:24
[2016-05-24] MEDS: LEVOTHYROXINE 125 MCG TABLET PO SCH (05:59)
[2016-05-24 06:14] VITALS: BP 110/62
[2016-05-24] MEDS: ASPIRIN ENTERIC COATED 81 MG TABLET.DR. PO SCH (08:35)
[2016-05-24] MEDS: ESCITALOPRAM 5 MG TABLET PO SCH (08:35)
[2016-05-24] MEDS: CETIRIZINE HCL 10 MG TABLET PO SCH (08:35)
[2016-05-24] MEDS: CARVEDILOL 6.25 MG TABLET PO SCH ×2 (08:35→17:25)
[2016-05-24] MEDS: CHOLECALCIFEROL (VITAMIN D3) 1,000 UNIT TABLET PO SCH (08:35)
[2016-05-24] MEDS: LISINOPRIL 20 MG TABLET PO SCH (08:36)
[2016-05-24] MEDS: LEVETIRACETAM 500 MG TABLET PO SCH ×2 (08:36→20:10)
[2016-05-24] MEDS: AMLODIPINE BESYLATE 5 MG TABLET PO SCH (08:36)
[2016-05-24] MEDS: FOLIC ACID 1 MG TABLET PO SCH (08:36)
[2016-05-24] MEDS: MIRABEGRON 25 MG TAB.ER.24H PO SCH (08:39)
[2016-05-24 15:25] VITALS: BP 98/63
[2016-05-24] MEDS: MULTIVITAMIN with MINERAL TABLET. PO SCH (20:10)
--- NOTE | 2016-05-24 20:57 | PDOC ---
Exam Tyson Demential Exam: Tyson Note: Please also refer to the separate dictated note~for this date of service dictated separately.~Patient seen individually. Discussed the patient with Nursing staff reviewed the chart.~Reviewed interim history and current functioning. Reviewed vital signs,~Labs/ Radiology~and current medications noted below. Continue current treatment with the changes noted in the dictated addendum note Assessment: Vital Signs: Vital Signs Date Time Temp Pulse Resp B/P Pulse Ox O2 Delivery O2 Flow Rate FiO2 05/24/16 17:25 79 98/63 05/24/16 15:25 97.8 17 95 05/23/16 09:44 Room Air I&O Intake and Output 05/24/16 07:00 Intake Total 1080 ml Balance 1080 ml Intake Oral 1080 ml Current Medications: Meds: Current Medications Acetaminophen (Tylenol) 650 mg PRN Q6HRS PRN PO PAIN / TEMP Last administered on 05/22/16 15:35; Start 05/18/16 at 20:15 Multi-Ingredient Ointment (Analgesic [place]) 1 rena PRN QID PRN TP MUSCLE PAIN; Start 05/18/16 at 20:15 Al Hydroxide/Mg Hydroxide (Mylanta Plus Xs) 15 ml PRN AFTMEALHC PRN PO DYSPEPSIA; Start 05/18/16 at 20:15 Magnesium Hydroxide (Milk Of Magnesia) 2,400 mg PRN QHS PRN PO CONSTIPATION; Start 05/18/16 at 20:15 Albuterol Sulfate (Ventolin) 2.5 mg PRN Q2HR PRN NEB SHORTNESS OF BREATH; Start 05/18/16 at 22:15 Amlodipine Besylate (Norvasc) 5 mg DAILY PO Last administered on 05/24/16 08: 36; Start 05/19/16 at 09:00 Aspirin (Aspirin Enteric Coated) 81 mg DAILY PO Last administered on 05/24/16 08:35; Start 05/19/16 at 09:00 Benzonatate (Tessalon Perle) 100 mg PRN TID PRN PO COUGH Last administered on 12:51; Start 05/18/16 at 22:15 Carvedilol (Coreg) 6.25 mg BIDWMEALS PO Last administered on 05/24/16 17:25; Start 05/19/16 at 08:00 Vitamin D (Vitamin D3) 1,000 unit DAILY PO Last administered on 05/24/16 08:35 ; Start 05/19/16 at 09:00 Cyanocobalamin (Vitamin B-12) 1,000 mcg QMONTH IM ; Start 06/17/16 at 09:00 Cyclobenzaprine HCl (Flexeril) 10 mg PRN TID PRN PO MUSCLE SPASMS; Start at 22:15 Folic Acid (Folic Acid) 1 mg DAILY PO Last administered on 05/24/16 08:36; Start 05/19/16 at 09:00 Levothyroxine Sodium (Synthroid) 125 mcg DAILYAC PO Last administered on 08:14; Start 05/19/16 at 07:30; Stop 05/21/16 at 08:21; Status DC Zolpidem Tartrate (Ambien) 5 mg PRN QHS PRN PO INSOMNIA Last administered on 00:29; Start 05/18/16 at 22:15 Lisinopril (Prinivil) 40 mg DAILY PO Last administered on 05/24/16 08:36; Start 05/19/16 at 09:00 Levetiracetam (Keppra) 500 mg BID PO Last administered on 05/24/16 20:10; Start 05/18/16 at 22:30 Multivitamins/ Calcium (Thera-M Plus) 2 tab HS PO Last administered on 20:10; Start 05/19/16 at 21:00 Escitalopram Oxalate (Lexapro) 5 mg DAILY PO Last administered on 05/24/16 08: 35; Start 05/20/16 at 10:00 Levothyroxine Sodium (Synthroid) 125 mcg 06 PO Last administered on 05/24/16 05:59; Start 05/22/16 at 06:00 Cetirizine HCl (Zyrtec) 10 mg DAILY PO Last administered on 05/24/16 08:35; Start 05/22/16 at 20:00 Active Scripts Active Reported Zolpidem Tartrate 5 Mg Tablet 5 Mg PO PRN QHS PRN Fsmuw-Uluccgz-Ulrjffex Tablet (Multivit-Min/Iron Fum/Folic AC) 1 Each Tablet 2 Each PO HS Myrbetriq (Mirabegron) 25 Mg Tab.er.24h 25 Mg PO DAILY Levothyroxine Sodium 125 Mcg Tablet 125 Mcg PO DAILYAC Levetiracetam 500 Mg Tab.er.24h 500 Mg PO BID Folic Acid 1 Mg Tablet 1 Mg PO DAILY Cyclobenzaprine Hcl 10 Mg Tablet 10 Mg PO PRN TID PRN Cyanocobalamin Injection (Cyanocobalamin (Vitamin B-12)) 1,000 Mcg/1 Ml Vial 1, 000 Mcg IJ QMONTH Vitamin D (Cholecalciferol (Vitamin D3)) 1,000 Unit Tablet 1,000 Unit PO DAILY Coreg (Carvedilol) 6.25 Mg Tablet 6.25 Mg PO BIDWMEALS Benzonatate 100 Mg Capsule 100 Mg PO PRN TID PRN Lotensin (Benazepril Hcl) 40 Mg Tablet 40 Mg PO DAILY Aspir-Low (Aspirin) 81 Mg Tablet.dr 81 Mg PO DAILY Norvasc (Amlodipine Besylate) 5 Mg Tablet 5 Mg PO DAILY Albuterol Sulfate Neb Soln (Albuterol Sulfate) 2.5 Mg/3 Ml Vial.neb 2.5 Mg NEB PRN Q2HR PRN Diagnosis: Problems: (1) Major depressive disorder, recurrent episode (2) Anxiety disorder (3) Impulse control disorder RIKY GREY MD May 24, 2016 20:57
--- NOTE | 2016-05-24 21:29 | PN ---
DATE: 05/23/2016 PSYCHIATRIC PROGRESS NOTE This is late entry of 05/23/2016, covers elements not covered in my initial note. SUBJECTIVE: Per nursing report, the patient's flu swab is negative, chest x-ray negative, started on Zyrtec, which has helped him with the nasal discharge. REVIEW OF SYSTEMS: Hard of hearing. No CV, , pulmonary, eye system symptoms on review. MENTAL STATUS EXAMINATION: Reasonably oriented. Speech coherent, abstraction fair, computation impaired, language function intact. Mood and affect is improved. As I met with him in his room, he talked at length about his being back home, another son in the home to assist her and his intention to be in assisted living with his and other disabled son to get the home. Much of this was very appropriate, coherent in his conversation. LABORATORY DATA: Reviewed. IMPRESSION: Unchanged from initial note. PLAN: Continue psychotropics, adjust as indicated. MAN Nemo GREY MD DR: YUDITH/austin JOB#: [id number] / [id number]
[2016-05-25] MEDS: LEVOTHYROXINE 125 MCG TABLET PO SCH (06:02)
[2016-05-25 06:25] VITALS: BP 105/66
[2016-05-25] MEDS: AMLODIPINE BESYLATE 5 MG TABLET PO SCH (07:53)
[2016-05-25] MEDS: LEVETIRACETAM 500 MG TABLET PO SCH ×2 (07:53→19:11)
[2016-05-25] MEDS: ASPIRIN ENTERIC COATED 81 MG TABLET.DR. PO SCH (07:53)
[2016-05-25] MEDS: ESCITALOPRAM 5 MG TABLET PO SCH (07:53)
[2016-05-25] MEDS: MIRABEGRON 25 MG TAB.ER.24H PO SCH (07:53)
[2016-05-25] MEDS: CETIRIZINE HCL 10 MG TABLET PO SCH (07:54)
[2016-05-25] MEDS: LISINOPRIL 20 MG TABLET PO SCH (07:54)
[2016-05-25] MEDS: FOLIC ACID 1 MG TABLET PO SCH (07:54)
[2016-05-25] MEDS: CHOLECALCIFEROL (VITAMIN D3) 1,000 UNIT TABLET PO SCH (07:54)
[2016-05-25] MEDS: CARVEDILOL 6.25 MG TABLET PO SCH ×2 (07:54→17:07)
[2016-05-25 15:16] VITALS: BP 111/74
[2016-05-25] MEDS: MULTIVITAMIN with MINERAL TABLET. PO SCH (19:11)
--- NOTE | 2016-05-25 19:38 | PN ---
DATE: 05/24/2016 PSYCHIATRIC PROGRESS NOTE This is late entry of 05/24/2016, covers elements not covered in my initial note. SUBJECTIVE: Overall, the patient has been calm, pleasant, more cooperative, still at times depressed, but denies suicidal ideation. He is pleased that his is back home. His son if there with the and they will be moving into an assisted living once he is discharged. REVIEW OF SYSTEMS: No CV, , pulmonary, eye system symptoms on review. He is hard of hearing. MENTAL STATUS EXAMINATION: Reasonably oriented. Speech is coherent, abstraction fair, computation impaired, language function intact, attention span short. Mood and affect is improved. LABORATORY DATA: Reviewed. IMPRESSION: Major depressive disorder, recurrent, in partial remission; anxiety disorder, unspecified. Rest diagnoses unchanged. PLAN: Increase Lexapro from 5 mg a day to 10 mg a day. May consider transition to back home later this week. RIKY GREY MD DR: YUDITH/austin JOB#: [id number] / [id number]
--- NOTE | 2016-05-25 20:59 | PDOC ---
Exam Tyson Demential Exam: Tyson Note: Please also refer to the separate dictated note~for this date of service dictated separately.~Patient seen individually. Discussed the patient with Nursing staff reviewed the chart.~Reviewed interim history and current functioning. Reviewed vital signs,~Labs/ Radiology~and current medications noted below. Continue current treatment with the changes noted in the dictated addendum note Assessment: Vital Signs: Vital Signs Date Time Temp Pulse Resp B/P Pulse Ox O2 Delivery O2 Flow Rate FiO2 05/25/16 17:07 72 111/74 05/25/16 15:16 97.9 18 94 05/23/16 09:44 Room Air I&O Intake and Output 05/25/16 07:00 Intake Total 840 ml Balance 840 ml Intake Oral 840 ml # Voids 2 Current Medications: Meds: Current Medications Acetaminophen (Tylenol) 650 mg PRN Q6HRS PRN PO PAIN / TEMP Last administered on 05/22/16 15:35; Start 05/18/16 at 20:15 Multi-Ingredient Ointment (Analgesic [place]) 1 rena PRN QID PRN TP MUSCLE PAIN; Start 05/18/16 at 20:15 Al Hydroxide/Mg Hydroxide (Mylanta Plus Xs) 15 ml PRN AFTMEALHC PRN PO DYSPEPSIA; Start 05/18/16 at 20:15 Magnesium Hydroxide (Milk Of Magnesia) 2,400 mg PRN QHS PRN PO CONSTIPATION; Start 05/18/16 at 20:15 Albuterol Sulfate (Ventolin) 2.5 mg PRN Q2HR PRN NEB SHORTNESS OF BREATH; Start 05/18/16 at 22:15 Amlodipine Besylate (Norvasc) 5 mg DAILY PO Last administered on 05/25/16 07: 53; Start 05/19/16 at 09:00 Aspirin (Aspirin Enteric Coated) 81 mg DAILY PO Last administered on 05/25/16 07:53; Start 05/19/16 at 09:00 Benzonatate (Tessalon Perle) 100 mg PRN TID PRN PO COUGH Last administered on 12:51; Start 05/18/16 at 22:15 Carvedilol (Coreg) 6.25 mg BIDWMEALS PO Last administered on 05/25/16 17:07; Start 05/19/16 at 08:00 Vitamin D (Vitamin D3) 1,000 unit DAILY PO Last administered on 05/25/16 07:54 ; Start 05/19/16 at 09:00 Cyanocobalamin (Vitamin B-12) 1,000 mcg QMONTH IM ; Start 06/17/16 at 09:00 Cyclobenzaprine HCl (Flexeril) 10 mg PRN TID PRN PO MUSCLE SPASMS; Start at 22:15 Folic Acid (Folic Acid) 1 mg DAILY PO Last administered on 05/25/16 07:54; Start 05/19/16 at 09:00 Levothyroxine Sodium (Synthroid) 125 mcg DAILYAC PO Last administered on 08:14; Start 05/19/16 at 07:30; Stop 05/21/16 at 08:21; Status DC Zolpidem Tartrate (Ambien) 5 mg PRN QHS PRN PO INSOMNIA Last administered on 00:29; Start 05/18/16 at 22:15 Lisinopril (Prinivil) 40 mg DAILY PO Last administered on 05/25/16 07:54; Start 05/19/16 at 09:00 Levetiracetam (Keppra) 500 mg BID PO Last administered on 05/25/16 19:11; Start 05/18/16 at 22:30 Multivitamins/ Calcium (Thera-M Plus) 2 tab HS PO Last administered on 19:11; Start 05/19/16 at 21:00 Escitalopram Oxalate (Lexapro) 5 mg DAILY PO Last administered on 05/25/16 07: 53; Start 05/20/16 at 10:00; Stop 05/25/16 at 16:32; Status DC Levothyroxine Sodium (Synthroid) 125 mcg 06 PO Last administered on 05/25/16 06:02; Start 05/22/16 at 06:00 Cetirizine HCl (Zyrtec) 10 mg DAILY PO Last administered on 05/25/16 07:54; Start 05/22/16 at 20:00 Escitalopram Oxalate (Lexapro) 10 mg DAILY PO ; Start 05/26/16 at 09:00 Active Scripts Active Reported Zolpidem Tartrate 5 Mg Tablet 5 Mg PO PRN QHS PRN Llapk-Lqnmksy-Fnnymsvc Tablet (Multivit-Min/Iron Fum/Folic AC) 1 Each Tablet 2 Each PO HS Myrbetriq (Mirabegron) 25 Mg Tab.er.24h 25 Mg PO DAILY Levothyroxine Sodium 125 Mcg Tablet 125 Mcg PO DAILYAC Levetiracetam 500 Mg Tab.er.24h 500 Mg PO BID Folic Acid 1 Mg Tablet 1 Mg PO DAILY Cyclobenzaprine Hcl 10 Mg Tablet 10 Mg PO PRN TID PRN Cyanocobalamin Injection (Cyanocobalamin (Vitamin B-12)) 1,000 Mcg/1 Ml Vial 1, 000 Mcg IJ QMONTH Vitamin D (Cholecalciferol (Vitamin D3)) 1,000 Unit Tablet 1,000 Unit PO DAILY Coreg (Carvedilol) 6.25 Mg Tablet 6.25 Mg PO BIDWMEALS Benzonatate 100 Mg Capsule 100 Mg PO PRN TID PRN Lotensin (Benazepril Hcl) 40 Mg Tablet 40 Mg PO DAILY Aspir-Low (Aspirin) 81 Mg Tablet.dr 81 Mg PO DAILY Norvasc (Amlodipine Besylate) 5 Mg Tablet 5 Mg PO DAILY Albuterol Sulfate Neb Soln (Albuterol Sulfate) 2.5 Mg/3 Ml Vial.neb 2.5 Mg NEB PRN Q2HR PRN Diagnosis: Problems: (1) Major depressive disorder, recurrent episode (2) Anxiety disorder (3) Impulse control disorder RIKY GREY MD May 25, 2016 20:59
[2016-05-26] MEDS: LEVOTHYROXINE 125 MCG TABLET PO SCH (05:50)
[2016-05-26 07:11] VITALS: BP 112/78
[2016-05-26] MEDS: LEVETIRACETAM 500 MG TABLET PO SCH ×2 (07:18→19:41)
[2016-05-26] MEDS: MIRABEGRON 25 MG TAB.ER.24H PO SCH (07:18)
[2016-05-26] MEDS: CARVEDILOL 6.25 MG TABLET PO SCH ×2 (07:19→16:44)
[2016-05-26] MEDS: AMLODIPINE BESYLATE 5 MG TABLET PO SCH (07:19)
[2016-05-26] MEDS: FOLIC ACID 1 MG TABLET PO SCH (07:20)
[2016-05-26] MEDS: ASPIRIN ENTERIC COATED 81 MG TABLET.DR. PO SCH (07:20)
[2016-05-26] MEDS: CHOLECALCIFEROL (VITAMIN D3) 1,000 UNIT TABLET PO SCH (07:20)
[2016-05-26] MEDS: CETIRIZINE HCL 10 MG TABLET PO SCH (07:20)
[2016-05-26] MEDS: LISINOPRIL 20 MG TABLET PO SCH (07:48)
[2016-05-26] MEDS: ESCITALOPRAM 10 MG TABLET. PO SCH (10:35)
[2016-05-26 16:13] VITALS: BP 153/78
[2016-05-26] MEDS: MULTIVITAMIN with MINERAL TABLET. PO SCH (19:42)
--- NOTE | 2016-05-26 20:17 | PN ---
DATE: 05/25/2016 PSYCHIATRIC PROGRESS NOTE This is late entry of 05/25/2016, covers elements not covered in my initial note. SUBJECTIVE: Overall, the patient has been fairly appropriate on the unit, interactive. REVIEW OF SYSTEMS: Hard of hearing. No CV, , pulmonary, eye system symptoms on review. MENTAL STATUS EXAMINATION: Reasonably oriented. Speech coherent, abstraction fair, computation reasonable, language function intact. Mood and affect is improved. The patient talked at length about wanting to get back home and that he talked to his on the telephone and said she wanted him in bed with her and he was laughing, very pleased, animated, talking about this. LABORATORY DATA: Reviewed. IMPRESSION: Unchanged from initial note. PLAN: Increase Lexapro to 10 mg a day, maintain Ambien p.r.n. Possible transition home later this week with outpatient followup. MAN Nemo GREY MD DR: YUDITH/austin JOB#: [id number] / [id number]
--- NOTE | 2016-05-26 20:58 | PDOC ---
Exam Tyson Demential Exam: Tyson Note: Please also refer to the separate dictated note~for this date of service dictated separately.~Patient seen individually. Discussed the patient with Nursing staff reviewed the chart.~Reviewed interim history and current functioning. Reviewed vital signs,~Labs/ Radiology~and current medications noted below. Continue current treatment with the changes noted in the dictated addendum note Assessment: Vital Signs: Vital Signs Date Time Temp Pulse Resp B/P Pulse Ox O2 Delivery O2 Flow Rate FiO2 05/26/16 16:44 71 153/78 05/26/16 16:13 97.4 19 96 05/23/16 09:44 Room Air I&O Intake and Output 05/26/16 07:00 Intake Total 720 ml Balance 720 ml Intake Oral 720 ml Current Medications: Meds: Current Medications Acetaminophen (Tylenol) 650 mg PRN Q6HRS PRN PO PAIN / TEMP Last administered on 05/22/16 15:35; Start 05/18/16 at 20:15 Multi-Ingredient Ointment (Analgesic [place]) 1 rena PRN QID PRN TP MUSCLE PAIN; Start 05/18/16 at 20:15 Al Hydroxide/Mg Hydroxide (Mylanta Plus Xs) 15 ml PRN AFTMEALHC PRN PO DYSPEPSIA; Start 05/18/16 at 20:15 Magnesium Hydroxide (Milk Of Magnesia) 2,400 mg PRN QHS PRN PO CONSTIPATION; Start 05/18/16 at 20:15 Albuterol Sulfate (Ventolin) 2.5 mg PRN Q2HR PRN NEB SHORTNESS OF BREATH; Start 05/18/16 at 22:15 Amlodipine Besylate (Norvasc) 5 mg DAILY PO Last administered on 05/26/16 07: 19; Start 05/19/16 at 09:00 Aspirin (Aspirin Enteric Coated) 81 mg DAILY PO Last administered on 05/26/16 07:20; Start 05/19/16 at 09:00 Benzonatate (Tessalon Perle) 100 mg PRN TID PRN PO COUGH Last administered on 12:51; Start 05/18/16 at 22:15 Carvedilol (Coreg) 6.25 mg BIDWMEALS PO Last administered on 05/26/16 16:44; Start 05/19/16 at 08:00 Vitamin D (Vitamin D3) 1,000 unit DAILY PO Last administered on 05/26/16 07:20 ; Start 05/19/16 at 09:00 Cyanocobalamin (Vitamin B-12) 1,000 mcg QMONTH IM ; Start 06/17/16 at 09:00 Cyclobenzaprine HCl (Flexeril) 10 mg PRN TID PRN PO MUSCLE SPASMS; Start at 22:15 Folic Acid (Folic Acid) 1 mg DAILY PO Last administered on 05/26/16 07:20; Start 05/19/16 at 09:00 Levothyroxine Sodium (Synthroid) 125 mcg DAILYAC PO Last administered on 08:14; Start 05/19/16 at 07:30; Stop 05/21/16 at 08:21; Status DC Zolpidem Tartrate (Ambien) 5 mg PRN QHS PRN PO INSOMNIA Last administered on 00:29; Start 05/18/16 at 22:15 Lisinopril (Prinivil) 40 mg DAILY PO Last administered on 05/25/16 07:54; Start 05/19/16 at 09:00 Levetiracetam (Keppra) 500 mg BID PO Last administered on 05/26/16 19:41; Start 05/18/16 at 22:30 Multivitamins/ Calcium (Thera-M Plus) 2 tab HS PO Last administered on 19:42; Start 05/19/16 at 21:00 Escitalopram Oxalate (Lexapro) 5 mg DAILY PO Last administered on 05/25/16 07: 53; Start 05/20/16 at 10:00; Stop 05/25/16 at 16:32; Status DC Levothyroxine Sodium (Synthroid) 125 mcg 06 PO Last administered on 05/26/16 05:50; Start 05/22/16 at 06:00 Cetirizine HCl (Zyrtec) 10 mg DAILY PO Last administered on 05/26/16 07:20; Start 05/22/16 at 20:00 Escitalopram Oxalate (Lexapro) 10 mg DAILY PO Last administered on 05/26/16 10 :35; Start 05/26/16 at 09:00 Active Scripts Active Reported Zolpidem Tartrate 5 Mg Tablet 5 Mg PO PRN QHS PRN Nlcgu-Wgsejil-Jpivxcoz Tablet (Multivit-Min/Iron Fum/Folic AC) 1 Each Tablet 2 Each PO HS Myrbetriq (Mirabegron) 25 Mg Tab.er.24h 25 Mg PO DAILY Levothyroxine Sodium 125 Mcg Tablet 125 Mcg PO DAILYAC Levetiracetam 500 Mg Tab.er.24h 500 Mg PO BID Folic Acid 1 Mg Tablet 1 Mg PO DAILY Cyclobenzaprine Hcl 10 Mg Tablet 10 Mg PO PRN TID PRN Cyanocobalamin Injection (Cyanocobalamin (Vitamin B-12)) 1,000 Mcg/1 Ml Vial 1, 000 Mcg IJ QMONTH Vitamin D (Cholecalciferol (Vitamin D3)) 1,000 Unit Tablet 1,000 Unit PO DAILY Coreg (Carvedilol) 6.25 Mg Tablet 6.25 Mg PO BIDWMEALS Benzonatate 100 Mg Capsule 100 Mg PO PRN TID PRN Lotensin (Benazepril Hcl) 40 Mg Tablet 40 Mg PO DAILY Aspir-Low (Aspirin) 81 Mg Tablet.dr 81 Mg PO DAILY Norvasc (Amlodipine Besylate) 5 Mg Tablet 5 Mg PO DAILY Albuterol Sulfate Neb Soln (Albuterol Sulfate) 2.5 Mg/3 Ml Vial.neb 2.5 Mg NEB PRN Q2HR PRN Diagnosis: Problems: (1) Major depressive disorder, recurrent episode (2) Anxiety disorder (3) Impulse control disorder RIKY GREY MD May 26, 2016 20:58
[2016-05-27] MEDS ORDERED: ACET325T9 PO (00:48)
[2016-05-27] MEDS ORDERED: CETI10TA16 PO (00:49)
[2016-05-27] MEDS ORDERED: LISI40TA PO (00:50)
[2016-05-27] MEDS ORDERED: MAG355OR17 PO (00:53)
[2016-05-27] MEDS ORDERED: METH29OI TP (00:54)
[2016-05-27] MEDS ORDERED: MAGN2400 PO (00:54)
[2016-05-27] MEDS ORDERED: ESCI10TA PO (00:56)
[2016-05-27] MEDS: LEVOTHYROXINE 125 MCG TABLET PO SCH (05:36)
[2016-05-27 05:45] VITALS: BP 111/69
[2016-05-27] MEDS: CARVEDILOL 6.25 MG TABLET PO SCH ×2 (08:00→15:54)
[2016-05-27] MEDS: LISINOPRIL 20 MG TABLET PO SCH (09:00)
[2016-05-27] MEDS: AMLODIPINE BESYLATE 5 MG TABLET PO SCH (09:18)
[2016-05-27] MEDS: ASPIRIN ENTERIC COATED 81 MG TABLET.DR. PO SCH (09:19)
[2016-05-27] MEDS: MIRABEGRON 25 MG TAB.ER.24H PO SCH (09:19)
[2016-05-27] MEDS: CETIRIZINE HCL 10 MG TABLET PO SCH (09:19)
[2016-05-27] MEDS: ESCITALOPRAM 10 MG TABLET. PO SCH (09:19)
[2016-05-27] MEDS: CHOLECALCIFEROL (VITAMIN D3) 1,000 UNIT TABLET PO SCH (09:19)
[2016-05-27] MEDS: LEVETIRACETAM 500 MG TABLET PO SCH ×2 (09:19→20:44)
[2016-05-27] MEDS: FOLIC ACID 1 MG TABLET PO SCH (09:19)
[2016-05-27 15:38] VITALS: BP 139/83
[2016-05-27 15:54] VITALS: BP 139/83
[2016-05-27] MEDS: ACETAMINOPHEN 325 MG TABLET PO PRN (15:54)
[2016-05-27] MEDS: MULTIVITAMIN with MINERAL TABLET. PO SCH (20:44)
--- NOTE | 2016-05-27 21:02 | PDOC ---
Exam Tyson Demential Exam: Tyson Note: Please also refer to the separate dictated note~for this date of service dictated separately.~Patient seen individually. Discussed the patient with Nursing staff reviewed the chart.~Reviewed interim history and current functioning. Reviewed vital signs,~Labs/ Radiology~and current medications noted below. Continue current treatment with the changes noted in the dictated addendum note Assessment: Vital Signs: Vital Signs Date Time Temp Pulse Resp B/P Pulse Ox O2 Delivery O2 Flow Rate FiO2 05/27/16 15:54 70 139/83 05/27/16 15:38 97.7 18 94 05/23/16 09:44 Room Air I&O Intake and Output 05/27/16 07:00 Intake Total 960 ml Balance 960 ml Intake Oral 960 ml Current Medications: Meds: Current Medications Acetaminophen (Tylenol) 650 mg PRN Q6HRS PRN PO PAIN / TEMP Last administered on 05/27/16 15:54; Start 05/18/16 at 20:15 Multi-Ingredient Ointment (Analgesic [place]) 1 rena PRN QID PRN TP MUSCLE PAIN; Start 05/18/16 at 20:15 Al Hydroxide/Mg Hydroxide (Mylanta Plus Xs) 15 ml PRN AFTMEALHC PRN PO DYSPEPSIA; Start 05/18/16 at 20:15 Magnesium Hydroxide (Milk Of Magnesia) 2,400 mg PRN QHS PRN PO CONSTIPATION; Start 05/18/16 at 20:15 Albuterol Sulfate (Ventolin) 2.5 mg PRN Q2HR PRN NEB SHORTNESS OF BREATH; Start 05/18/16 at 22:15 Amlodipine Besylate (Norvasc) 5 mg DAILY PO Last administered on 05/27/16 09: 18; Start 05/19/16 at 09:00 Aspirin (Aspirin Enteric Coated) 81 mg DAILY PO Last administered on 05/27/16 09:19; Start 05/19/16 at 09:00 Benzonatate (Tessalon Perle) 100 mg PRN TID PRN PO COUGH Last administered on 12:51; Start 05/18/16 at 22:15 Carvedilol (Coreg) 6.25 mg BIDWMEALS PO Last administered on 05/27/16 15:54; Start 05/19/16 at 08:00 Vitamin D (Vitamin D3) 1,000 unit DAILY PO Last administered on 05/27/16 09:19 ; Start 05/19/16 at 09:00 Cyanocobalamin (Vitamin B-12) 1,000 mcg QMONTH IM ; Start 06/17/16 at 09:00 Cyclobenzaprine HCl (Flexeril) 10 mg PRN TID PRN PO MUSCLE SPASMS; Start at 22:15 Folic Acid (Folic Acid) 1 mg DAILY PO Last administered on 05/27/16 09:19; Start 05/19/16 at 09:00 Levothyroxine Sodium (Synthroid) 125 mcg DAILYAC PO Last administered on 08:14; Start 05/19/16 at 07:30; Stop 05/21/16 at 08:21; Status DC Zolpidem Tartrate (Ambien) 5 mg PRN QHS PRN PO INSOMNIA Last administered on 00:29; Start 05/18/16 at 22:15 Lisinopril (Prinivil) 40 mg DAILY PO Last administered on 05/25/16 07:54; Start 05/19/16 at 09:00 Levetiracetam (Keppra) 500 mg BID PO Last administered on 05/27/16 09:19; Start 05/18/16 at 22:30 Multivitamins/ Calcium (Thera-M Plus) 2 tab HS PO Last administered on 19:42; Start 05/19/16 at 21:00 Escitalopram Oxalate (Lexapro) 5 mg DAILY PO Last administered on 05/25/16 07: 53; Start 05/20/16 at 10:00; Stop 05/25/16 at 16:32; Status DC Levothyroxine Sodium (Synthroid) 125 mcg 06 PO Last administered on 05/27/16 05:36; Start 05/22/16 at 06:00 Cetirizine HCl (Zyrtec) 10 mg DAILY PO Last administered on 05/27/16 09:19; Start 05/22/16 at 20:00 Escitalopram Oxalate (Lexapro) 10 mg DAILY PO Last administered on 05/27/16 09 :19; Start 05/26/16 at 09:00 Active Scripts Active Reported Escitalopram Oxalate 10 Mg Tablet 10 Mg PO DAILY Cetirizine Hcl 10 Mg Tablet 10 Mg PO DAILY Tylenol (Acetaminophen) 325 Mg Tablet 650 Mg PO PRN Q6HRS PRN Omlei-Flaxlei-[place] Tablet (Multivit-Min/Iron Fum/Folic AC) 1 Each Tablet 2 Each PO HS Myrbetriq (Mirabegron) 25 Mg Tab.er.24h 25 Mg PO DAILY Levothyroxine Sodium 125 Mcg Tablet 125 Mcg PO DAILYAC Levetiracetam 500 Mg Tab.er.24h 500 Mg PO BID Folic Acid 1 Mg Tablet 1 Mg PO DAILY Cyclobenzaprine Hcl 10 Mg Tablet 10 Mg PO PRN TID PRN Cyanocobalamin Injection (Cyanocobalamin (Vitamin B-12)) 1,000 Mcg/1 Ml Vial 1, 000 Mcg IM QMONTH Vitamin D (Cholecalciferol (Vitamin D3)) 1,000 Unit Tablet 1,000 Unit PO DAILY Coreg (Carvedilol) 6.25 Mg Tablet 6.25 Mg PO BIDWMEALS Benzonatate 100 Mg Capsule 100 Mg PO PRN TID PRN Lotensin (Benazepril Hcl) 40 Mg Tablet 40 Mg PO DAILY Aspir-Low (Aspirin) 81 Mg Tablet.dr 81 Mg PO DAILY Norvasc (Amlodipine Besylate) 5 Mg Tablet 5 Mg PO DAILY Albuterol Sulfate Neb Soln (Albuterol Sulfate) 2.5 Mg/3 Ml Vial.neb 2.5 Mg NEB PRN Q2HR PRN Diagnosis: Problems: (1) Major depressive disorder, recurrent episode (2) Anxiety disorder (3) Impulse control disorder RIKY GREY MD May 27, 2016 21:02
--- NOTE | 2016-05-28 18:30 | DS ---
DATE OF DISCHARGE: 05/28/2016 DISCHARGE SUMMARY/PSYCHIATRIC PROGRESS NOTE REASON FOR ADMISSION: Please refer to the admission history for details. Briefly, the patient is an 85-year-old male who is referred to us from the Emergency Room at the local hospital where he presented with worsening symptoms of depression, suicidal ideation with a plan to use a knife to end his life. He lives generally at home with his and she was hospitalized, which worsened his isolation symptoms of depression with the onset of suicidality, prompting this referral. SIGNIFICANT FINDINGS AND CLINICAL COURSE: Following admission, the patient was seen daily individually by myself from a psychiatric standpoint, followed medically per Dr. Rosenberg/Dr Schneider. The patient was depressed, somewhat withdrawn, hopeless. He seemed to respond to a combination of Lexapro 10 mg a day, Ambien 5 mg at bedtime p.r.n. prior to discharge on 05/27/2016. REVIEW OF SYSTEMS: Hard of hearing. No CV, , pulmonary, eye system symptoms on review. MENTAL STATUS EXAMINATION: Reasonably oriented. Speech coherent, abstraction fair, computation impaired, language function intact, attention span short. Mood and affect, bright, denied suicidal ideation at discharge. CONDITION ON DISCHARGE: Improved. Prior to discharge on 05/27/2016, temperature 98.8, BP 111/69, pulse 68 and respirations 20. FINAL DIAGNOSES: Major depressive disorder, recurrent, in partial remission; anxiety disorder, unspecified; impulse control disorder, unspecified. Rest diagnoses unchanged from admission. DISCHARGE MEDICATIONS: Please refer to the MRAD. DISCHARGE INSTRUCTIONS: Outpatient psychiatric and medical followup locally with his primary care physician and psychiatrist as arranged. Time for discharge day management greater than 30 minutes. MAN Nemo GREY MD DR: YUDITH/austin JOB#: [id number] / [id number]
--- NOTE | 2016-05-28 19:48 | PN ---
DATE: 05/26/2016 PSYCHIATRIC PROGRESS NOTE This is late entry of 05/26/2016, covers elements not covered in my initial note. SUBJECTIVE: Per nursing report, the patient has been fairly appropriate on the unit. He had a conversation over the telephone with his , is more animated, denies suicidal ideation, ready for transition back home on 05/27/2016. REVIEW OF SYSTEMS: Hard of hearing. No CV, , pulmonary, eye system symptoms on review. MENTAL STATUS EXAMINATION: Reasonably oriented. Speech coherent, abstraction fair, computation impaired, language function intact. Mood and affect is improved. LABORATORY DATA: Reviewed. IMPRESSION: Unchanged from initial note. PLAN: Continue Lexapro 10 mg a day, Ambien 5 mg at bedtime p.r.n. Transition to outpatient treatment on 05/27/2016. MAN Nemo GREY MD DR: YUDITH/austin JOB#: [id number] / [id number]
[2016-06-17] MEDS ORDERED: CYANOCOBALAMIN (VITAMIN B-12) 1,000 MCG/ML VIAL IM SCH (09:00)
== END 2016-05-27 22:20 | disposition home or self-care (01) | DRG 885 ==
LOC: GEROPSY 19:50
PROVIDERS: ADMIT Psychiatry & Neurology Psychiatry; ATTEND Psychiatry & Neurology Psychiatry
DX: F33.41 Major depressive disorder, recurrent, in partial remission (principal); F33.2 Major depressive disorder, recurrent severe without psychotic features; E03.9 Hypothyroidism, unspecified; E78.5 Hyperlipidemia, unspecified; F63.9 Impulse disorder, unspecified; G47.33 Obstructive sleep apnea (adult) (pediatric); I10 Essential (primary) hypertension; I25.10 Atherosclerotic heart disease of native coronary artery without angina pectoris; K57.90 Diverticulosis of intestine, part unspecified, without perforation or abscess without bleeding; M54.9 Dorsalgia, unspecified; F43.23 Adjustment disorder with mixed anxiety and depressed mood; G70.00 Myasthenia gravis without (acute) exacerbation; H90.5 Unspecified sensorineural hearing loss; Z85.828 Personal history of other malignant neoplasm of skin; Z86.73 Personal history of transient ischemic attack (TIA), and cerebral infarction without residual deficits; Z95.1 Presence of aortocoronary bypass graft; Z95.5 Presence of coronary angioplasty implant and graft; Z87.442 Personal history of urinary calculi; Z79.899 Other long term (current) drug therapy; I25.2 Old myocardial infarction; F41.8 Other specified anxiety disorders
CPT/HCPCS: 36415; 70450; 71010; 80053; 80061; 81001; 82306; 82607; 83036; 83540; 83550; 83735; 84436; 84443; 84480; 85027; 86592; 86593; 87804; 93005